=== PATIENT | female | born 1945 | race Caucasian/White ===

== ENCOUNTER → 2017-10-16 | Outpatient (CLI) | payer OTHER, MEDICARE ==
[~2017-10-16] MED LIST: ALEVE220 M1 PO; ASPIR 8181 MG PO; BUDEPRION XL300 MG PO; CALCIUM 600 +1 EAC1 PO; CHANTIX1 MG PO; CYCLOBENZAPRINE5 MG PO; CYMBALTA60 MG PO; ELIQUIS5 MG PO; ENDOCET 5-3251 EACH PO; EVISTA PO; FENOFIBRATE54 MG PO; FOLIC ACID1 MG PO; GABAPENTIN 100100 MG PO; HYDROCHLOROTH12.5 M1 PO; HYDROCHLOROTHIA25 M2 PO; LIPITOR40 MG PO; LISINOPRIL10 MG PO; LISINOPRIL20 MG PO; LISINOPRIL30 MG PO; LOFIBRA54 MG PO; MULTIVITAMINS1 EAC7 PO; NORCO 5-325 TA1 EACH PO; PENTOXIFYLLINE400 MG PO; PRAVACHOL40 MG PO; SENNA PO; SYNTHROID200 MCG PO; TRAMADOL 50 MG50 MG PO; VITAMIN D2000 UNIT PO; ZESTORETIC 20-1 EAC1 PO
[2017-10-16 09:36] LABS: CREATININE 0.9 mg/dL (0.6-1.0)
== END ==
LOC: CAT 08:28
PROVIDERS: Internal Medicine Cardiovascular Disease
DX: I71.4 Abdominal aortic aneurysm, without rupture (principal)

== ENCOUNTER → 2019-07-06 | Outpatient (CLI) | payer OTHER, MEDICARE | LOC: SJCVCIMAG 07:52 | PROVIDERS: ATTEND Internal Medicine Cardiovascular Disease | DX: R94.31 Abnormal electrocardiogram [ECG] [EKG] (principal); I07.1 Rheumatic tricuspid insufficiency; I71.4 Abdominal aortic aneurysm, without rupture; I11.9 Hypertensive heart disease without heart failure; D68.59 Other primary thrombophilia; I73.9 Peripheral vascular disease, unspecified; I71.2 Thoracic aortic aneurysm, without rupture; Z86.711 Personal history of pulmonary embolism; Z72.0 Tobacco use ==

== ENCOUNTER → 2020-03-09 | Outpatient (CLI) | payer OTHER, MEDICARE ==
[~2020-03-09] MED LIST changes: +ASA81BEC PO; +LEVOTHYROXINE175 MC1 PO; +LISINOPRIL-HCT1 EACH PO; +MULTI VITAMIN1 EACH PO; +TYLENOL ARTHRI650 MG PO; +TYLENOL325 M1 PO
== END ==
LOC: SJCVCIMAG 14:10 → LAB 14:21
PROVIDERS: ATTEND Internal Medicine
DX: I71.4 Abdominal aortic aneurysm, without rupture (principal); I10 Essential (primary) hypertension; F17.200 Nicotine dependence, unspecified, uncomplicated; Z79.899 Other long term (current) drug therapy

== ENCOUNTER → 2020-03-13 | Outpatient (CLI) | payer OTHER, MEDICARE ==
[~2020-03-13] VITALS: Ht 165.1 cm; Wt 93.0 kg
[2020-03-13 10:28] VITALS: BP 127/63
[2020-03-13 10:44] LABS: HEMOGLOBIN 14.9 gm/dL (12.0-15.0); MCH 32.2 pg (26.0-34.0); MCHC 33.8 g/dL (28.0-37.0); MCV 95.3 fL (80.0-100.0); RBC 4.62 mil/uL (4.20-5.00); RDW 13.2 % (10.5-14.5); WBC 7.8 thou/uL (4.0-11.0)
[2020-03-13 10:47] LABS: CALCIUM 9.1 mg/dL (8.5-10.1); CREATININE 0.8 mg/dL (0.6-1.0)
--- NOTE | 2020-03-13 10:58 | EKG ---
[facility] [place] [address] ELECTROCARDIOGRAM REPORT Name: ISRAEL PITTS Room #: REG [facility].#: [id number] Admission: 03/13/20 Attend Phys: Steven Mclain MD, Discharge: Date of : 43 Report #: [id number] THIS REPORT FOR: cc: Kenia Irwin, Kenia Santiago, Jacob Gutierrez MD ~ THIS REPORT FOR: //name// [facility] Test Date: 2020-03-13 Test Time: 10:11:16 Pat Name: ISRAEL PITTS Department: Room: Gender: F Artificial Fly Tier: MAXIMILIANO : 1945 Requested By: Steven Mclain Order Number: [id number] MD: Jacob Linda Measurements Intervals [place] Rate: 89 P: 66 OR: 140 QRS: 67 QRSD: 90 T: QT: 373 QTc: 454 Interpretive Statements Sinus rhythm Ventricular trigeminy Compared to ECG 05/26/2016 12:11:18 Ventricular premature complex(es) now present Sinus tachycardia no longer present Electronically Signed On 03-13-2020 10:57:56 SOCIAL SCIENCE PROFESSOR by Jacob Linda [email or web address] <ELECTRONICALLY SIGNED> By: Jacob Linda MD 03/13/20 1057 1011 1011 Jacob Linda MD /EPI
--- NOTE | 2020-03-13 16:25 | CATHLAB ---
[facility] [place] [address] INVASIVE PROCEDURE REPORT Name: ISRAEL PITTS Room #: REG [facility].#: [id number] Admission: 03/13/20 Attend Phys: Steven Mclain MD, Discharge: Date of : 43 Report #: [id number] THIS REPORT FOR: cc: Kenia Irwin ARNP Brown, Deborah J, ARNP Lundgren, Craig H. MD [facility] ~ APPROVED REPORT Study performed: 03/13/2020 12:22:57 Patient Details Patient Status: Out-Patient Room #: The patient is a 74 year-old female Event Personnel Oral Bustamante Acid Painter, Keo Ramos RN RN, Keith Yan RTR ScrAmanda gates Ja'net RTR Monitor Procedures Performed Left Heart Cath w/or w/o Coronaries [id number] [facility] Art Access - R femoral artery* 97831 Initial Mod Sed Same Phys/QHP Gr5y [id number] Hemostasis w/ Mynx Procedure Narrative The patient was brought electively to the Cardiac Catheterization Laboratory and was prepped and draped in a sterile manner. A SHEATH BRITE-TIP 6F X 11CM ([id number]) sheath was inserted into the RFA^. Coronary angiography was performed using coronary diagnostic catheters. The right coronary system was accessed and visualized with a JR4 catheter. The left coronary system was accessed and visualized with a JL4 catheter. The left ventricle was accessed and visualized with a PIGTAIL catheter. Left ventriculogram was performed in 30 degree projection. Closure device was deployed with a Fr MYNXGRIP 6/7F #[id number]. The patient tolerated the procedure well and there were no complications associated with the procedure. There was no hematoma. This was a combo case with Dr Gonsalez he started at 12:36 and scrubbed out at 13:05. He used [address] Bustamante used 8 ml in Omnipaque. Intraoperative Conscious Sedation Sedation start time: 11:28 Case end Time: 13:05 Fentanyl 100 mcg Versed [address] [address] INVASIVE PROCEDURE REPORT Name: ISRAEL PITTS Room #: [facility] ANIYAH Barron#: [id number] Admission: 03/13/20 Attend Phys: Steven Mclain, Discharge: Date of : 43 Report #: [id number] Fluoro Time: 10.72 minutes Dose: DAP 75027.60 cGycm2 408 mGy Contrast Type and Amount: Visipaque 106 ml Coronary Angiography The patient's coronary anatomy is right dominant. Diagnostic Cath Left Main Normal left main LAD Normal left anterior descending Diagonal 1 Normal first diagonal branch Circumflex Large but nondominant circumflex comprised of a single bifurcating marginal branch, angiographically normal OM1 Normal OM1 Right Coronary Normal dominant right coronary R PDA Normal posterior descending RPLV Normal posterior lateral branch Left Ventriculography The left ventricle is normal in size with normal contractility. The left ventricular ejection fraction is estimated to be 60-65%. Left ventricular wall motion abnormalities are not present. There is no mitral insufficiency. Hemodynamics The aortic pressure is 106/60 mmHg with a mean of 87 mmHg. The left ventricular pressure is 115/9 mmHg with a mean of mmHg. The left ventricular end diastolic pressure is 18 mmHg. Pullback from the left ventricle to the aorta revealed no gradient across the aortic valve. Conclusion 1. Normal global and regional left ventricular systolic function. EF 65% 2. Normal left main 3. Normal coronary vasculature. Right coronary dominant circulation <ELECTRONICALLY SIGNED> By: Oral Bustamante MD, FACC 03/13/20 1625 1625 162 Oral Bustamante MD, FACC /INF
--- NOTE | 2020-03-18 11:57 | HC ---
[facility] [place] [address] CONSULTATION Name: ISRAEL PITTS Room #: REG [facility].#: [id number] Admission: 03/13/20 Attend Phys: Steven Mclain MD, Discharge: Date of : 43 Report #: [id number] THIS REPORT FOR: cc: Kenia Irwin, Kenia Santiago, Agustin Patel MD ~ DATE OF SERVICE: 03/13/2020 We were asked to see the patient by Dr. Gonsalez. HISTORY OF PRESENT ILLNESS: The patient is a 74-year-old with an abdominal aortic aneurysm. The patient has a known abdominal aneurysm found by coincidence in workup of lower back discomfort, which has been a chronic issue. Today, the patient had an arteriogram in preparation for stent graft placement. The patient also had a coronary artery angiogram that showed no disease. CT scan had previously shown a 5 cm infrarenal abdominal aortic aneurysm with a reasonable anatomy for stent graft placement. PAST MEDICAL HISTORY: Significant for hypertension and history of deep vein thrombosis. The patient also was treated for hypothyroidism. MEDICATIONS: Includes aspirin, calcium, Cymbalta, Eliquis, lisinopril, hydrochlorothiazide, pravastatin, Synthroid, Ultram, and vitamins. ALLERGIES: None known. SOCIAL HISTORY: The patient is a former nurse. She is a current smoker. REVIEW OF SYSTEMS: GENERAL: No fever or chills. RESPIRATORY: No cough, shortness of breath. CARDIAC: No chest pain or palpitations. GASTROINTESTINAL: No nausea, vomiting blood. GENITOURINARY: No urgency, frequency, blood. MUSCULOSKELETAL: No bone or joint pain. SKIN: No rash or infection. NEUROLOGIC: No motor or sensory loss. ENDOCRINE: No goiter, no tremor. VASCULAR: No claudication. No ulceration or gangrene. PHYSICAL EXAMINATION: VITAL SIGNS: Blood pressure 116/76, heart rate 90. HEENT: No scleral icterus, no arcus. [facility] [address] [place] [address] CONSULTATION Name: ISRAEL PITTS Room #: REG [facility].#: [id number] Admission: 03/13/20 Attend Phys: Steven Mclain MD, Discharge: Date of : 43 Report #: [id number] NECK: No mass, no bruit. CHEST: Clear to auscultation. HEART: Rhythm regular. ABDOMEN: Soft, no mass, no tenderness. EXTREMITIES: No clubbing, cyanosis or edema, 2+ popliteal pulses bilaterally. SKIN: No rash or infection. MUSCULOSKELETAL: No bone or joint asymmetry or deformity. NEUROLOGIC: No motor or sensory dysfunction. PSYCHIATRIC: Oriented x 3 and appropriate. IMPRESSION AND PLAN: The patient has evidence for an abdominal aortic aneurysm of 5 cm in size suitable for stent graft implant. The risks and details of surgery were discussed. Options and alternatives were reviewed. The patient understands all of this and wishes to proceed. We will arrange for elective admission and performed the case with Dr. Gonsalez. Thank you for the consult. <ELECTRONICALLY SIGNED> By: Agustin Ramires MD 03/18/20 1157 1255 2239 Agustin Ramires MD /nt
== END | disposition home or self-care (01) ==
LOC: CATH 06:36
PROVIDERS: ATTEND Internal Medicine Cardiovascular Disease
DX: I71.4 Abdominal aortic aneurysm, without rupture (principal); K55.1 Chronic vascular disorders of intestine; I70.1 Atherosclerosis of renal artery; I10 Essential (primary) hypertension; I25.10 Atherosclerotic heart disease of native coronary artery without angina pectoris; E03.9 Hypothyroidism, unspecified; E78.5 Hyperlipidemia, unspecified; F17.210 Nicotine dependence, cigarettes, uncomplicated; Z79.899 Other long term (current) drug therapy; Z98.890 Other specified postprocedural states; Z79.01 Long term (current) use of anticoagulants; Z86.711 Personal history of pulmonary embolism

== ENCOUNTER → 2020-03-15 | Outpatient (CLI) | payer OTHER, MEDICARE | LOC: LAB 12:05 | PROVIDERS: ATTEND Surgery Vascular Surgery | DX: Z01.812 Encounter for preprocedural laboratory examination (principal); Z20.828 Contact with and (suspected) exposure to other viral communicable diseases ==

== ENCOUNTER 2020-03-20 09:54 | Inpatient (IN) | payer OTHER, MEDICARE ==
[2020-03-15 11:23] LABS: URINE BILIRUBIN NEGATIVE (Negative); URINE BLOOD 1+ (Negative); URINE CLARITY CLEAR; URINE COLOR YELLOW; URINE GLUCOSE-RANDOM* NEGATIVE (Negative); URINE KETONES NEGATIVE (Negative); URINE LEUKOCYTES-REFLEX NEGATIVE (Negative); URINE NITRITE-REFLEX NEGATIVE (Negative); URINE PROTEIN (DIPSTICK) NEGATIVE (Negative); URINE UROBILINOGEN 0.2 E.U./dl (0.2-1.0)
[2020-03-15 11:27] LABS: ABSOLUTE NEUTROPHILS 5.4 thou/uL (1.4-8.2); BASOPHILS 0.7 % (0.0-2.0); EOSINOPHILS 2.1 % (0.0-3.0); HEMATOCRIT 44.1 % (37.0-47.0); HEMOGLOBIN 14.8 gm/dL (12.0-15.0); LYMPHOCYTES 23.3 % (24.0-44.0); MCHC 33.6 g/dL (28.0-37.0); MCV 95.4 fL (80.0-100.0); MONOCYTES 7.6 % (1.0-8.0); PLATELET COUNT 268 thou/uL (150-400); POLYS 66.3 % (36.0-66.0); RBC 4.62 mil/uL (4.20-5.00); RDW 13.3 % (10.5-14.5); WBC 8.1 thou/uL (4.0-11.0)
[2020-03-15 11:40] LABS: CASTS None Seen /LPF (None Seen); MUCUS >6 Heavy strn/LPF (None Seen); SQUAMOUS 4-10 Moderate /LPF (0-3)
[2020-03-15 11:42] LABS: CRYSTALS None Seen /LPF (None Seen); URINE RBC 3-10 Few /HPF (0-2); URINE WBC-REFLEX 0-5 Rare /HPF (0-5)
[2020-03-15 11:48] LABS: APTT 26.2 Seconds (24.5-32.8); PROTIME 9.8 Seconds (9.3-11.4)
[2020-03-15 11:51] LABS: ALBUMIN 3.8 g/dL (3.4-5.0); CALCIUM 9.3 mg/dL (8.5-10.1); CREATININE 0.8 mg/dL (0.6-1.0); POTASSIUM 3.9 mmol/L (3.5-5.1); TOTAL BILIRUBIN 0.5 mg/dL (0.2-1.0); TOTAL PROTEIN 6.7 g/dL (6.4-8.2)
[2020-03-20] VITALS (8 sets, daily range): BP systolic 122–137; BP diastolic 58–71
[~2020-03-20] VITALS: Ht 165.1 cm; Wt 94.8 kg
--- NOTE | ~2020-03-20 | O ---
[facility] [place] [address] OPERATIVE REPORT Name: ISRAEL PITTS Room #: 249-P ADM IN M.R.#: [id number] Admission: 03/20/20 Attend Phys: Agustin Ramires MD Discharge: Date of : 43 Report #: [id number] THIS REPORT FOR: cc: Kenia Irwin, Kenia Santiago, GUY Ramires,Agustin Knapp MD ~ DATE OF SERVICE: 03/20/2020 PREOPERATIVE DIAGNOSIS: Abdominal aortic aneurysm. POSTOPERATIVE DIAGNOSIS: Abdominal aortic aneurysm. OPERATION: Stent graft implant for treatment of infrarenal abdominal aortic aneurysm with intraoperative arteriograms. SURGEONS: Dr. Agustin Ramires and Dr. Zheng Gonsalez. COMPENSATION ASSOCIATE: UMA Nelson ANESTHESIA: General. INDICATIONS: The patient is a 74-year-old with a large infrarenal abdominal aortic aneurysm that is nonsignificant in the last year or so and has a divergent neck. FINDINGS AND TECHNIQUE: After general anesthesia was established, incisions were made in both groins to expose the common deep and superficial femoral arteries. 10,000 units of heparin were given on each side, the common femoral artery was entered with the needle followed by guidewire and a 6-Ethiopian sheath was placed. Through the sheath, the long J wire, exchanged catheter and Dhruv wire was placed using Seldinger technique. On the right side, the 18-Ethiopian sheath was placed through a femoral cutdown over the wire and on the left side a 12-Ethiopian sheath was placed through a cutdown over the wire. Through the right side, the 35 x 14.5 x 14 main body was placed through the left side, a visceral catheter followed by a Storq wire and then the guiding catheter was placed into the renal artery on the right to identify its position and help us plan the main body in the appropriate position. The main body was opened and the contralateral gate was opened, the contralateral gate was cannulated and good position and the gate was ascertained with the pigtail spin technique. [facility] [address] [place] [address] OPERATIVE REPORT Name: ISRAEL PITTS Room #: 249-P [facility] IN M.R.#: [id number] Admission: 03/20/20 Attend Phys: Agustin Ramires MD Discharge: Date of : 43 Report #: [id number] A retrograde sheath shot was taken on the left side to determine the hypogastric takeoff and based on this information, an 18 x 11.5 contralateral limb was placed landing just above the left hypogastric artery. On the right side, another sheath shot was placed to locate the right hypogastric artery and an 18 x 13.5 limb was placed, opening just at the right hypogastric. An arteriogram was done to show that there was good flow into the right hypogastric artery. When all of the graft deployed a noncompliant balloon was used to fully deploy all pieces and to set the active fixation proximally. When all of the graft pieces had been fully dilated with a noncompliant balloon, 2 compliant balloons were used to kissing technique to fully deploy the graft at the aortic bifurcation where there was some narrowing of the [place] aortic bifurcation. This was done without incident. With the graft fully deployed the pigtail was replaced and a final arteriogram was taken, which showed good position of the graft below the renal arteries and above the hypogastric and no evidence of endoleak. Satisfied with the position of the graft dilators were placed over the guidewires into the sheaths and the sheaths and dilators were removed, then the guidewires were removed on each side, the cut downs were closed with interrupted Prolene. Flow was reestablished and good pulses were ascertained. Protamine was given to reverse the heparin. Groins were closed in the usual fashion. The patient tolerated the procedure well and was taken to the recovery area in good condition. All counts reported as correct. By: 1742 1814 Agustin Ramires MD /nt
--- NOTE | 2020-03-20 20:57 | NUR ---
1820-RECEIVED PT FROM PACU VIA BED.SEE ASSESSMENTS.--VW
[2020-03-21] VITALS (10 sets, daily range): BP systolic 100–113; BP diastolic 45–87
[2020-03-21 05:03] LABS: HEMATOCRIT 38.6 % (37.0-47.0); HEMOGLOBIN 12.6 gm/dL (12.0-15.0); MCH 31.8 pg (26.0-34.0); MCHC 32.6 g/dL (28.0-37.0); MCV 97.5 fL (80.0-100.0); RBC 3.96 mil/uL (4.20-5.00); RDW 13.2 % (10.5-14.5); WBC 10.6 thou/uL (4.0-11.0)
[2020-03-21 05:05] LABS: CALCIUM 8.2 mg/dL (8.5-10.1); CREATININE 0.8 mg/dL (0.6-1.0); POTASSIUM 4.1 mmol/L (3.5-5.1)
--- NOTE | 2020-03-21 07:23 | EKG ---
[facility] [address] [place] [address] ELECTROCARDIOGRAM REPORT Name: ISRAEL PITTS Room #: 249-P ADM IN M.R.#: [id number] Admission: 03/20/20 Attend Phys: Agustin Ramires MD Discharge: Date of : 43 Report #: [id number] <ELECTRONICALLY SIGNED> By: Cj Aguila MD, FACC 03/21/2023 3 3 Cj Aguila MD, FACC /EPI
--- NOTE | 2020-03-21 08:37 | NUR ---
0800-UP IN CHAIR PRIOR TO MY ARRIVAL. PT IN [facility]CE[facility]. STATES BACK PAIN (NEVER GONE) BUT ~2/10. WANTS TO BE DISCHARGED. ELIER CARDONA SUPPLY TECHNICIAN, EN [employer] PA, IN TO SEE. PLAN TO DISCH HOME TODAY.--VW
[2020-03-21] MEDS ORDERED: ELIQUIS5 MG PO (15:11)
== END 2020-03-21 15:00 | disposition home or self-care (01) | DRG 269 ==
LOC: PRE 09:54 → TBA 09:57 → ICU 09:57 → PRE 10:11 → ICU 15:10
PROVIDERS: Physician Assistant; ADMIT Surgery Vascular Surgery; ATTEND Surgery Vascular Surgery
PROC: 04V03DZ Restriction of Abdominal Aorta with Intraluminal Device, Percutaneous Approach (ICD-10-PCS; principal; 2020-03-20)
PROC: B4181ZZ Fluoroscopy of Bilateral Renal Arteries using Low Osmolar Contrast (ICD-10-PCS; principal; 2020-03-20)
DX: I71.4 Abdominal aortic aneurysm, without rupture (principal); I25.10 Atherosclerotic heart disease of native coronary artery without angina pectoris; I10 Essential (primary) hypertension; E78.00 Pure hypercholesterolemia, unspecified; E78.5 Hyperlipidemia, unspecified; E03.9 Hypothyroidism, unspecified; I65.29 Occlusion and stenosis of unspecified carotid artery; G89.29 Other chronic pain; M54.9 Dorsalgia, unspecified; Z86.711 Personal history of pulmonary embolism; Z88.8 Allergy status to other drugs, medicaments and biological substances; Z90.49 Acquired absence of other specified parts of digestive tract; Z82.3 Family history of stroke; Z71.6 Tobacco abuse counseling; Z79.82 Long term (current) use of aspirin; Z79.899 Other long term (current) drug therapy; Z72.0 Tobacco use
CPT/HCPCS: 10078; 47375; 50010; 50101; 50386; 50455; 52287; 54118; 56524; 56526; 56531; 56668; 56760; 57093; 57853; 57854; 57857; 58399; 58400; 58402; 62110; 62900; 65020; 65040; 70005

== ENCOUNTER → 2020-05-02 | Outpatient (CLI) | payer OTHER, MEDICARE | LOC: SJCVC 09:11 | PROVIDERS: ATTEND Internal Medicine Cardiovascular Disease | DX: R94.31 Abnormal electrocardiogram [ECG] [EKG] (principal); I77.810 Thoracic aortic ectasia; I73.9 Peripheral vascular disease, unspecified; E78.00 Pure hypercholesterolemia, unspecified; I10 Essential (primary) hypertension; I77.9 Disorder of arteries and arterioles, unspecified; E78.5 Hyperlipidemia, unspecified; E03.9 Hypothyroidism, unspecified; F17.210 Nicotine dependence, cigarettes, uncomplicated; Z79.82 Long term (current) use of aspirin; Z79.899 Other long term (current) drug therapy; Z95.828 Presence of other vascular implants and grafts; Z86.711 Personal history of pulmonary embolism ==

== ENCOUNTER → 2020-05-02 | Outpatient (CLI) | payer OTHER, MEDICARE ==
[2020-05-02 08:30] LABS: CREATININE 0.9 mg/dL (0.6-1.0)
== END ==
LOC: CAT 07:37
PROVIDERS: ATTEND Nuclear Medicine Nuclear Cardiology
DX: I71.4 Abdominal aortic aneurysm, without rupture (principal); K76.89 Other specified diseases of liver; I25.10 Atherosclerotic heart disease of native coronary artery without angina pectoris; M16.0 Bilateral primary osteoarthritis of hip; N28.1 Cyst of kidney, acquired; Z95.828 Presence of other vascular implants and grafts

== ENCOUNTER → 2021-01-30 | Outpatient (CLI) | payer OTHER, MEDICARE | END | disposition home or self-care (01) | LOC: SJCVCIMAG 07:44 | PROVIDERS: ATTEND Nuclear Medicine Nuclear Cardiology | DX: I65.23 Occlusion and stenosis of bilateral carotid arteries (principal); I71.4 Abdominal aortic aneurysm, without rupture; I77.9 Disorder of arteries and arterioles, unspecified; I25.10 Atherosclerotic heart disease of native coronary artery without angina pectoris; I73.9 Peripheral vascular disease, unspecified; I71.2 Thoracic aortic aneurysm, without rupture; E78.5 Hyperlipidemia, unspecified; E03.9 Hypothyroidism, unspecified; E78.00 Pure hypercholesterolemia, unspecified; F17.210 Nicotine dependence, cigarettes, uncomplicated; Z79.82 Long term (current) use of aspirin; Z79.899 Other long term (current) drug therapy ==

== ENCOUNTER → 2021-01-30 | Outpatient (CLI) | payer OTHER, MEDICARE | LOC: CAT 09:18 | PROVIDERS: ATTEND Nuclear Medicine Nuclear Cardiology | DX: I71.4 Abdominal aortic aneurysm, without rupture (principal); I71.2 Thoracic aortic aneurysm, without rupture; I25.10 Atherosclerotic heart disease of native coronary artery without angina pectoris ==

== ENCOUNTER → 2021-04-03 | Outpatient (CLI) | payer OTHER, MEDICARE | LOC: SJCVC 14:06 | PROVIDERS: ATTEND Internal Medicine Cardiovascular Disease | DX: I49.1 Atrial premature depolarization (principal); R00.0 Tachycardia, unspecified; R94.31 Abnormal electrocardiogram [ECG] [EKG]; I77.9 Disorder of arteries and arterioles, unspecified; I71.4 Abdominal aortic aneurysm, without rupture; I73.9 Peripheral vascular disease, unspecified; I71.2 Thoracic aortic aneurysm, without rupture; I10 Essential (primary) hypertension; E78.00 Pure hypercholesterolemia, unspecified; M19.90 Unspecified osteoarthritis, unspecified site; G89.29 Other chronic pain; R10.30 Lower abdominal pain, unspecified; E78.5 Hyperlipidemia, unspecified; E03.9 Hypothyroidism, unspecified; F17.200 Nicotine dependence, unspecified, uncomplicated; Z79.82 Long term (current) use of aspirin; Z79.899 Other long term (current) drug therapy ==